=== PATIENT | male | born 1955 | race Caucasian/White ===

== ENCOUNTER → 2021-02-02 | Outpatient (CLI) | payer OTHER ==
[~2021-02-02] VITALS: Ht 175.3 cm; Wt 104.0 kg
[~2021-02-02] MED LIST: ASA81BEC PO; BENICAR HCT 401 EACH PO; LIPITOR 20 MG T20 M1 PO; OMEPRAZOLE40 MG PO
[2021-02-02 07:21] VITALS: BP 121/80
--- NOTE | 2021-02-02 08:49 | CATHLAB ---
[facility] [place] [address] INVASIVE PROCEDURE REPORT Name: SD BORGES Room #: REG VIRI [facility]#: [id number] Admission: 02/02/21 Attend Phys: Hemanth Conde MD, Discharge: Date of : 59 Report #: [id number] THIS REPORT FOR: cc: Jhonny Seo MD, Troy A. MD Lundgren, Craig H. MD [facility] ~ APPROVED REPORT Study performed: 02/02/2021 07:57:54 Patient Details Patient Status: Out-Patient Room #: The patient is a 65 year-old male Event Personnel Hemanth Conde Guard Range, Astrid Child RTR Monitor, Rabia Mai RN RN, Cecilia García RTR, [employer] Scrub Procedures Performed Art Access - R femoral artery* Left Heart Cath w/or w/o Coronaries [id number] C Hemostasis w/ Mynx 80429 Initial Mod Sed Same Phys/QHP Gr5y [id number] Procedure Narrative The patient was brought electively to the Cardiac Catheterization Laboratory and was prepped and draped in a sterile manner. The Right Groin^ was infiltrated with 1% Lidocaine subcutaneous anesthesia. A PINNACLE 6FR Sheath #[id number] sheath was inserted into the RFA^. Coronary angiography was performed using coronary diagnostic catheters. The right coronary system was accessed and visualized with a JR4 catheter. The left coronary system was accessed and visualized with a JL4 catheter. The left ventricle was accessed and visualized with a ANGLED PIGTAIL catheter. Left ventriculogram was performed in 30 degree projection. Closure device was deployed with a Fr MYNXGRIP 6/7F #[id number]. The patient tolerated the procedure well and there were no complications associated with the procedure. There was no hematoma. Intraoperative Conscious Sedation Sedation start time: 8:10 Case end Time: 8:31 Fentanyl 100 mcg Versed 2 mg [facility] [place] [address] INVASIVE PROCEDURE REPORT Name: SD BORGES Room #: [facility]#: [id number] Admission: 02/02/21 Attend Phys: Hemanth Conde, Discharge: Date of : 59 Report #: [id number] Fluoro Time: 1.07 minutes Dose: DAP 3607.60 cGycm2 372 mGy Contrast Type and Amount: Omnipaque 95 ml Coronary Angiography The patient's coronary anatomy is right dominant. Diagnostic Cath Left Main Normal left main LAD Mild ectasia and minimal proximal LAD plaquing Diagonal 1 Large first diagonal, angiographically normal Circumflex Large but nondominant circumflex comprised of 2 marginal branches. OM1 Mild 10-20% proximal OM1 plaquing OM2 Very small distally arising OM 2, normal Right Coronary Dominant right coronary with 20-30% mid and distal plaquing R PDA Normal posterior descending Ramus Large ramus branch with minimal proximal plaquing Left Ventriculography The left ventricle is normal in size with normal contractility. The left ventricular ejection fraction is estimated to be 60-65%. Left ventricular wall motion abnormalities are not present. There is no mitral insufficiency. Hemodynamics The aortic pressure is 117/55 mmHg with a mean of 81 mmHg. The left ventricular pressure is 120/6 mmHg with a mean of mmHg. The left ventricular end diastolic pressure is 22 mmHg. Conclusion 1. Normal global and regional left ventricular systolic function. EF 65% 2. Normal left main 3. Mild scattered atherosclerotic plaquing. Right coronary dominant circulation Recommendations Aggressive Medical Therapy <ELECTRONICALLY SIGNED> By: Hemanth Conde MD, FACC 02/02/21847 7 7 Hemanth Conde MD, FACC /INF
== END | disposition home or self-care (01) ==
LOC: CATH 06:32
PROVIDERS: ATTEND Internal Medicine
DX: I25.10 Atherosclerotic heart disease of native coronary artery without angina pectoris (principal); I10 Essential (primary) hypertension; E78.5 Hyperlipidemia, unspecified; K21.9 Gastro-esophageal reflux disease without esophagitis; Z98.890 Other specified postprocedural states; Z79.899 Other long term (current) drug therapy; Z86.73 Personal history of transient ischemic attack (TIA), and cerebral infarction without residual deficits; Z85.828 Personal history of other malignant neoplasm of skin; Z79.82 Long term (current) use of aspirin